=== PATIENT | female | born 1985 | race Caucasian/White ===

== ENCOUNTER 2017-07-16 05:57 | Inpatient (IN) ==
[2017-07-16] MEDS ORDERED: Lidocaine -MPF 1% 2 ML VIAL ONE (06:29)
[2017-07-16] MEDS ORDERED: Ringers Solution, Lactated 1,000 ML ONE (06:29)
[2017-07-16] MEDS ORDERED: Naloxone 0.4 MG/ML INJ IVP PRN (06:33)
[2017-07-16] MEDS ORDERED: Metoclopramide 10 MG/2 ML VIAL IVP PRN ×2 (06:33→13:58)
[2017-07-16] MEDS ORDERED: Famotidine 20 MG/2 ML VIAL IVP PRN (06:33)
--- NOTE | 2017-07-16 06:41 | Anesthesia Evaluation PreOp ---
Date of Encounter: 07/16/17 Time of Encounter: 06:31 - Past History Planned Operation: repeat Cardiac History: Denies any Significant Hx Pulmonary History: Denies Any Significant HX WARD NURSE History: Denies Any Significant HX Other Medical History: Other (scolosis, previous spinal with issues.) Anesthesia History: No Prior Anesthetic Complications, Past Anesthesia : Yes (term) Alcohol Use: none Medications and Allergies Acetaminophen [Tylenol] 500 mg PO Q6HR PRN #20 tablet 05/19/17 [Rx] Aspirin 05/19/17 [History] Cefdinir [Omnicef] 300 mg PO BID #20 capsule 05/19/17 [Rx] DiphenhydraMINE [Benadryl] 25 mg PO Q6HR PRN #20 capsule 05/19/17 [Rx] Vitamins 05/19/17 [History] Vistaril 05/19/17 [History] 3 Allergy/AdvReac Type Severity Reaction Status Date / Time No Known Allergies Allergy Verified 05/19/17 12:29 Anesthesia Exam - HEENT Pupil (Motor): Pupils equal Mallampati: II Teeth: Normal Oral Opening: Greater than 3 - WARD NURSE LOC: Oriented WARD NURSE Motor: Normal RUE, Normal LUE, Normal RLE, Normal LLE, Normal Face WARD NURSE Sensory: Normal: RUE, LUE, RLE, LLE, Face - Cardiac Rhythm: Regular Murmur: None - Pulmonary Breath Sounds: bilateral Clear Respiratory Effort: Symmetrical Anesthesia Assess/Plan ASA Score: 2 Modified [place]ott Scale for Level of Consciousness: Cooperative, oriented, and tranquil Anesthetic Plan: General, Regional (patient reported she "juan c" with last spinal, did not lose conc.) Monitoring Plan: Standard Monitors Recovery Plan: PACU
[2017-07-16] MEDS ORDERED: Ringers Solution, Lactated 1,000 ML IVC SCH (06:45)
[2017-07-16 07:04] LABS: Basophils % 0.2 %; Eosinophils # 0.1 K/mcL (0.0-0.6); Eosinophils % 0.8 %; Hematocrit 33.5 % (35.3-44.9); Hemoglobin 11.6 g/dL (11.5-15.4); Immature Granulocytes % 0.4 % (0-4); Lymphocytes # 2.4 K/mcL (0.6-4.6); Lymphocytes % 14.6 %; Mean Corpuscular HGB Conc 34.6 g/dL (31.6-35.5); Mean Corpuscular Hemoglobin 30.4 pg (28.0-33.3); Mean Corpuscular Volume 87.7 fL (83.0-100.0); Mean Platelet Volume 10.6 fL (9.4-12.4); Monocytes # 0.7 K/mcL (0.0-1.3); Monocytes % 4.1 %; Neutrophils # 13.4 K/mcL (1.6-8.9); Platelet Count 229 K/mcL (140-400); Red Blood Count 3.82 M/mcL (3.82-4.97); Red Cell Distribution Width 13.9 % (11.5-14.5); Segmented Neutrophils % 79.9 %
[2017-07-16] MEDS ORDERED: *HR* Promethazine 25 MG/ML VIAL IVP PRN (07:24)
[2017-07-16] MEDS ORDERED: *HR* Labetalol 20 MG/4 ML SYRINGE IVP PRN (07:24)
[2017-07-16] MEDS ORDERED: *HR* HYDROmorphone (PF) 1 MG/ML SYRINGE IVP PRN ×2 (07:24→13:58)
--- NOTE | 2017-07-16 07:27 | OB/GYN History & Physical ---
Date of Encounter: 07/16/17 Time of Encounter: 07:23 Assessment and Plan (1) Hx of section Current visit: Yes Status: Acute Patient has a history of previous classical . [facility] recommended repeat C section at 36 weeks LR 125ml/hr CBC UDS Repeat C section by Dr De León. (2) 36 weeks gestation of Current visit: Yes Status: Acute Patient is 36w1d (3) History of delivery, currently in third trimester Current visit: Yes Status: Acute The patient has received progesterone during this (4) History of classical section Current visit: Yes Status: Acute Repeat at 36 weeks per [facility] recommendations (5) History of pre-eclampsia in prior , currently in third trimester Current visit: Yes Status: Acute Patient has been asymptomatic with stable blood pressures (6) Tobacco use affecting in third trimester, antepartum Current visit: Yes Status: Acute Smoking cessation information has been reviewed with the patient during this (7) Family history of dwarfism Current visit: Yes Status: Acute The patient has a current child affected. No markers noted on ultrasound with this History of Present Illness Chief complaint: RPT C/S HPI: Ms. Phipps is a 32 year old female at 36w1d presents to labor and delivery for a repeat . Patient denies loss of fluid, vaginal bleeding or discharge. Reports good movement. Denies any complications with this . States that she saw Dr. Collins and now sees Dr. De León. Patient states that she is here for C Section with Dr. De León. Patient reports that she has had s still and a child that only lived a month before developing an infection and dying. Her GBS was done in the office as a PCR. No results available. She is neto today on the monitor Blood type O negative CMV IgG Antibody 5.20 HPV High Risk Positive Rubella IgG antibody Positive VZV IgG Antibody Positive Past Med Surg Social Fam HX - Past Medical History Medical history: non-contributory Psychiatric history: depression - Past Surgical History Surgical History: other - Social History Smoking Status: Current every day smoker Packs per day: 1/2 Smokeless Tobacco Status: No Alcohol use: none Drug use: none - Family History Maternal Grandfather Hx Family Cardiac Disorders: No Hx Family Respiratory Disorders: Yes (emphysema) Hx Family Cancer: Yes (colon ca, bladder ca, stomach ca) Hx Family GI Disorders: No Hx Family Genitourinary Disorders: No Hx Family Endocrine Disorder: No Hx Family Musculoskeletal Disorders: No Hx Family Neuromuscular Disorders: No Hx Family Neurologic Disorders: No Hx Family HEENT Disorders: No Hx Family Autoimmune Disorders: No Hx Family Reproductive Disorders: No Hx Family Psychosocial Disorders: No Hx Family Medical Disorders: No Obstetrical History - Pregnancies : 4 Term: 0 : 3 Ab's: 0 Livin - History/Complications History/Complications: #1 Still at 24 weeks #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 Hx of preeclampsia and oligohydramnios Medications and Allergies Acetaminophen [Tylenol] 500 mg PO Q6HR PRN #20 tablet 05/19/17 [Rx] Aspirin 81 mg PO DAILY 05/19/17 [History] Vitamins 1 tab PO DAILY 05/19/17 [History] Vistaril 25 mg PO DAILY PRN 05/19/17 [History] 3 Allergy/AdvReac Type Severity Reaction Status Date / Time No Known Allergies Allergy Verified 05/19/17 12:29 Review of System OB All systems PM: reviewed and no additional remarkable complaints except as stated - Constitutional Constitutional ROS IM: weight gain - Gastrointestinal Gastrointestinal: cramping Exam - Constitutional Constitutional: well developed, well nourished, no acute distress, average body habitus - HEENT HEENT: Normocephaly, Mucus Membranes Moist - Neck Neck exam: full ROM, normal inspection, supple - Lungs Respiratory exam: CTAB - Cardiovascular Cardiovascular exam: RRR, +S1, +S2 - Abdomen Abdomen: Present: bowel sounds normal, gravid, non tender - Extremities Extremities exam: full ROM, normal capillary refill, normal inspection Deep Tendon Reflex Grade: 2+ Normal - Vulva Vulva: bilateral: normal - Vagina Vagina: Present: normal moisture - Anus/Rectum Anus/Rectum: Present: normal perianal skin Results Result Diagrams: 07/16/17 06:55 Abnormal lab results WBC 16.7 K/mcL (4.3-11.1) H 07/16/17 06:55 Hct 33.5 % (35.3-44.9) L 07/16/17 06:55 Neutrophils # 13.4 K/mcL (1.6-8.9) H 07/16/17 06:55 All other labs normal. - VTE Documentation of Mechanical Device: Intermittent pneumatic compression device - Attending Attestation I examined this patient and my medical decision-making was reviewed with the Resident Physician. I agree with the documented findings, disposition and treatment plan as described except to the extent set forth below.
[2017-07-16] MEDS ORDERED: cefOXitin 2,000 MG in Water for inj. (sterile) 10 ML IVP ONE (07:56)
--- NOTE | 2017-07-16 08:52 | Anesthesia Procedures ---
Date of Encounter: 07/16/17 Time of Encounter: 08:49 Procedures: Anesthesia - Epidural/Spinal Patient ID/Chart reviewed: Yes Patient examined: Yes OB Eval: Gestational age: 36 OB Eval: : 4 OB Eval: Hx Para: 2 OB Eval: Dilated at (cm): 2 OB Eval: Contractions: Non-stressed pattern Consent Obtained: Yes Supplemental Oxygen: Nasal Cannula Supplemental Oxygen Rate (L/min): 3 Site Prep: Aseptic Technique, Sterile prep and drape, Povidone-Iodine 1% Patient position: upright Local Anesthetic: Lidocaine 1% Amount of Local Anesthetic used: 3 Interspace Used: L2-L3 Loss of Resistance (MANSI): No Blood: No CSF: Yes Paresthesia: No Spinal Needle Gauge: 25 Spinal Dose: marcaine 12mg, duramorph .25, fentanyl 7 mcg Vitals + FHT's: 130/70 90 16 fht 133
[2017-07-16] MEDS ORDERED: *HR* Oxytocin 10 UNIT/ML VIAL IM ONE (09:07)
[2017-07-16] MEDS ORDERED: Ondansetron 4 MG/2 ML VIAL ONE (09:07)
[2017-07-16 09:12] LABS: Amphetamine Screen,Urine Negative ng/mL (Cutoff=1000); Barbiturate Screen,Urine Negative ng/mL (Cutoff=200); Benzodiazepines Screen,Urine Negative ng/mL (Cutoff=200); Cannabinoid Screen,Urine Positive ng/mL (Cutoff = 50); Cocaine Screen,Urine Negative ng/mL (Cutoff= 300); Opiate Screen,Urine Negative ng/mL (Cutoff=300); Phencyclidine Screen,Urine Negative ng/mL (Cutoff=25)
--- NOTE | 2017-07-16 09:40 | OB/GYN Procedure Note ---
Section - Date of procedure: 07/16/17 Preop diagnosis: desires repeat , other (Previous classical section, omental adhesions) Post-op diagnosis: same Procedure: section, repeat low transverse Surgeon: Cori De León Estimated blood loss (cc): 300 Anesthesiologist: Rai Tipton Philosophy Faculty: John Rico Anesthesia Type: Spinal section complications: none Disposition: L&D Recovery Room Specimens: Placenta, Cord blood - Infant (s) A Delivery Date: 07/16/17 Delivery Time: 08:53 Presentation: vertex Position: LOT Route of delivery: other (Repeat section) Gender: Female Viability: Viable Pounds: 4 Ounces: 12 at 1 minute: 9 at 5 minutes: 9 Specimens collected: cord blood Placenta: spontaneous Cord: 3 umbilical vessels - Narrative Narrative: The patient was taken to the operating room and given spinal anesthesia adequate for abdominal and pelvic surgery. She was prepped and draped in the usual sterile fashion. Timeout was completed. A Pfannenstiel skin incision was made through the previous scar. The subcutaneous tissue was sharply dissected down to the fascia. The fascia was incised in the midline and extended bilaterally with Schaefer scissors.. 2 straight Lyons clamps were placed on the inferior fascial edge and the fascia was bluntly and sharply dissected away from the rectus muscles. This was repeated superiorly. The rectus muscles were bluntly bissected. Peritoneum was sharply entered and then extended superiorly and inferiorly confirming there were no obstructing anterior adhesions. Bladder blade was placed to protect the bladder. There were omental adhesions to the right of the incision that were lysed with the Bovie. Vesicouterine peritoneum was incised and reflected inferiorly and the bladder blade was replaced to protect the bladder. A low transverse incision was then made through the lower uterine segment down to the amnion. This was extended in a U fashion with bandage scissors. The amnion was bluntly entered. Clear fluid was seen. This was followed by the vertex delivery of a viable and vigorous female weighing 4 #12 oz with Apgars of 9 at 1 minute and 9 at 5 minutes. Infant was placed on the maternal abdomen. The cord was clamped and cut after a delay. Infant was handed to the nursery care team. Cord blood was obtained. The placenta was delivered spontaneous and intact. The uterine cavity was digitally palpated and wiped clean with a moist lap sponge. There were no placental remnants identified. A ring forcep was used to make sure the cervix was dilated and then this was discarded off the field. Clamps were placed on the uterine angles and the uterine incision was closed using 0 Vicryl suture in a running, locking fashion. A second imbricating layer completed the uterine closure with 0 Vicryl suture. The uterus was then examined and noted to be hemostatic. The pelvis was then irrigated with a copious amount of sterile water. And again good hemostasis was identified. Tubes and ovaries were inspected and noted to be grossly normal. The peritoneal edges and rectus muscles were then examined and hemostasis achieved. The fascia was then closed using 0 PDS loop in a running nonlocking fashion. Subcutaneous tissue was irrigated with sterile water, good hemostasis was achieved. The skin was then closed using a 4-0 Monocryl in a running subcuticular fashion. The incision was then reinforced with benzoin and Steri-Strips. Good hemostasis was noted. Estimated blood loss was 300cc. The [place] was noted to be draining clear yellow urine at the end of the procedure. All sponge and instrument counts are correct at the end of the procedure. The patient was taken to the recovery room in stable condition.
[2017-07-16] MEDS ORDERED: Oxytocin 20 units/ LR 1000 mL 20 UNIT/1,000 ML BAG IVC ONE (11:13)
--- NOTE | 2017-07-16 12:06 | Anesthesia Evaluation Post Op ---
Date of Encounter: 07/16/17 Time of Encounter: 12:05 - Lungs Lungs: Clear Ascult./Percussion - Airway Airway: Non-obstructed - Cardiovascular Regular Rate - Mental Status Mental Status: Alert & Oriented, Answers Appropriately - Pain Pain Scale: 4 (dilaudid given) Pain Scale used: Numeric (1 - 10) - Nausea Vomiting Nausea Vomiting: Not Present - Hydration Hydration: NPO - Discharge PostOp Status: Transfer Patient to floor (VSS, pain managed, no anesthetic complications)
[2017-07-16] MEDS ORDERED: Ondansetron 4 MG/2 ML VIAL IVP PRN (13:58)
[2017-07-16] MEDS ORDERED: Rho Immune Globulin 1,500 UNIT SYRINGE IM ONE (13:58)
[2017-07-16] MEDS ORDERED: Oxytocin 20 units/ LR 1000 mL 20 UNIT/1,000 ML BAG IVC SCH (13:58)
[2017-07-16] MEDS ORDERED: Sennosides 8.6 MG TABLET PO PRN (13:58)
[2017-07-16] MEDS: *HR* OxyCODONE/APAP 5/325 TABLET PO PRN ×2 (18:03→22:23)
[2017-07-16] MEDS: Ibuprofen 600 MG TABLET PO SCH ×2 (19:24→22:23)
[2017-07-17 06:44] LABS: Basophils % 0.3 %; Eosinophils # 0.1 K/mcL (0.0-0.6); Hematocrit 27.8 % (35.3-44.9); Immature Granulocytes % 0.4 % (0-4); Lymphocytes # 2.3 K/mcL (0.6-4.6); Lymphocytes % 18.6 %; Mean Corpuscular HGB Conc 34.5 g/dL (31.6-35.5); Mean Corpuscular Hemoglobin 29.8 pg (28.0-33.3); Mean Corpuscular Volume 86.3 fL (83.0-100.0); Mean Platelet Volume 10.1 fL (9.4-12.4); Monocytes # 0.7 K/mcL (0.0-1.3); Monocytes % 5.5 %; Neutrophils # 9.2 K/mcL (1.6-8.9); Platelet Count 163 K/mcL (140-400); Red Blood Count 3.22 M/mcL (3.82-4.97); Red Cell Distribution Width 13.6 % (11.5-14.5); Segmented Neutrophils % 74.2 %
[2017-07-17 06:45] LABS: Hemoglobin 9.6 g/dL (11.5-15.4)
[2017-07-17] MEDS: Prenatal Vit/FA 1 EACH TABLET PO SCH (08:14)
[2017-07-17] MEDS: Simethicone 80 MG TAB.CHEW PO PRN (08:14)
[2017-07-17] MEDS: *HR* OxyCODONE/APAP 5/325 TABLET PO PRN ×3 (08:14→21:06)
[2017-07-17] MEDS: Ibuprofen 600 MG TABLET PO SCH (08:15)
--- NOTE | 2017-07-17 08:48 | OB/GYN Progress Note ---
Date of Encounter: 07/17/17 Time of Encounter: 08:42 - Assessment and Plan (1) Status post repeat low transverse section Current Visit: Yes Status: Acute Doing well s/p repeat C/S Day 1 Meeting post-op milestones. COntinue routine post-op/ orders Anticipate discharge home tomorrow. Subjective - Subjective Principal diagnosis: Repeat Interval history: S/P repeat C/S day 1. Pain is well controlled with ordered medication. VSS Tolerating regular diet Voiding without difficulty; has yet to pass flatus. States she will walk in the halls this morning after breakfast Some difficulty with latch for ; working with Anticipate discharge home tomorrow. Patient reports: appetite normal, voiding normally, pain well controlled, ambulating normally Aragon: doing well Objective - Vital Signs Latest vital signs: Vital Signs Temp Pulse Pulse Resp BP Pulse Ox 07/17/17 07:30 97.5 F L 87 14 107/70 100 07/16/17 23:26 97.8 F 96 16 112/76 100 07/16/17 21:10 98.2 F 90 20 110/71 100 07/16/17 21:00 90 07/16/17 19:55 97.8 F 90 16 109/72 99 07/16/17 14:45 97.7 F 83 16 109/70 07/16/17 13:45 97.9 F 89 16 100/65 07/16/17 12:15 98.1 F 105 16 110/70 100 07/16/17 11:45 98.3 F 87 16 118/77 100 Intake and Output 07/16/17 07/17/17 07/17/17 23:59 07:59 15:59 Intake Total 820 / 820 0 / 0 Output Total 150 / 150 1800 / 1800 Balance 670 / 670 -1800 / -1800 Intake: Oral 820 / 820 0 / 0 Output: Urine 400 / 400 Catheter 150 / 150 1400 / 1400 Other: Meal Dinner Percent of Meal Consumed 95% - Exam Lungs: bilateral: normal Chest: Normal S1, Normal S2 Extremities: Present: normal Abdomen: Present: normal appearance, soft. Absent: gravid, tenderness Incision: Present: dry (Dressing C/D/I) Uterus: Present: normal, firm Fundal Height: 0 (at Umbilicus) - Labs Labs: Laboratory Results - last 24 hr 07/16/17 07/16/17 07/17/17 06:57 09:50 06:34 WBC 12.4 H RBC 3.22 L Hgb 9.6 L D Hct 27.8 L MCV 86.3 MCH 29.8 MCHC 34.5 RDW 13.6 Plt Count 163 MPV 10.1 Immature Gran % 0.4 Seg Neutrophils % 74.2 Lymphocytes % 18.6 Monocytes % 5.5 Eosinophils % 1.0 Basophils % 0.3 Neutrophils # 9.2 H Lymphocytes # 2.3 Monocytes # 0.7 Eosinophils # 0.1 Basophils # 0.0 Urine Opiates Screen Negative Ur Barbiturates Screen Negative Ur Phencyclidine Scrn Negative Ur Amphetamines Screen Negative U Benzodiazepines Scrn Negative Urine Cocaine Screen Negative U Marijuana (THC) Screen Positive H Screen NEGATIVE Baby's Blood Type A RH POSITIVE Mother's Blood Type O RH NEGATIVE Rhogam Indicated YES Rhogam Req for Mother 1
[2017-07-18] MEDS: Ibuprofen 600 MG TABLET PO SCH (06:24)
[2017-07-18] MEDS: *HR* OxyCODONE/APAP 5/325 TABLET PO PRN (08:03)
[2017-07-18] MEDS: Simethicone 80 MG TAB.CHEW PO PRN (08:03)
[2017-07-18] MEDS: Prenatal Vit/FA 1 EACH TABLET PO SCH (08:03)
--- NOTE | 2017-07-18 08:20 | Discharge Summary ---
Addendum entered and electronically signed by Roger Rowley DO 07/18/17 10: 01: Pre-term delivery at 36w1d Original Note: Date of Encounter: 07/18/17 Time of Encounter: 08:18 - Discharge Diagnosis (1) Status post repeat low transverse section Priority: Primary Status: Acute Comments: Pt is s/p repeat POD#2 and meeting all post-op milestones - tolerating po intake, ambulating well, passing flatus. Pain controlled with medications. OARRS reviewed and appropriate. She states she is doing well and feels ready to go home. She can be discharged home today. (2) 36 weeks gestation of Priority: Secondary Status: Acute - Discharge Medications Prescriptions: OxyCODONE/APAP 5/325 [Percocet 5/325 MG] 1 each PO Q4HR PRN #20 tablet PRN Reason: Moderate pain 4-6 Ibuprofen [Motrin] 600 mg PO Q6HR #60 tablet Breast Pump [BREAST PUMP] 1 each .ROUTE AD #1 each Docusate [Colace] 100 mg PO BID #60 capsule Ferrous Sulfate 325 mg PO DAILY #30 tablet.dr Home Medications: Acetaminophen [Tylenol] 500 mg PO Q6HR PRN #20 tablet 05/19/17 [Rx] Aspirin 81 mg PO DAILY 05/19/17 [History] Vitamins 1 tab PO DAILY 05/19/17 [History] Vistaril 25 mg PO DAILY PRN 05/19/17 [History] Breast Pump [BREAST PUMP] 1 each .ROUTE AD #1 each 07/18/17 [Rx] Docusate [Colace] 100 mg PO BID #60 capsule 07/18/17 [Rx] Ferrous Sulfate 325 mg PO DAILY #30 tablet. 07/18/17 [Rx] Ibuprofen [Motrin] 600 mg PO Q6HR #60 tablet 07/18/17 [Rx] OxyCODONE/APAP 5/325 [Percocet 5/325 MG] 1 each PO Q4HR PRN #20 tablet 07/18/17 [Rx] Allergies/Adverse Reactions: 3 Allergy/AdvReac Type Severity Reaction Status Date / Time No Known Allergies Allergy Verified 05/19/17 12:29 Data Procedures and tests throughout hospitalization: Laboratory Tests 07/16/17 07/16/17 07/16/17 06:55 06:57 09:50 WBC 16.7 H RBC 3.82 Hgb 11.6 Hct 33.5 L MCV 87.7 MCH 30.4 MCHC 34.6 RDW 13.9 Plt Count 229 MPV 10.6 Immature Gran % 0.4 Seg Neutrophils % 79.9 Lymphocytes % 14.6 Monocytes % 4.1 Eosinophils % 0.8 Basophils % 0.2 Neutrophils # 13.4 H Lymphocytes # 2.4 Monocytes # 0.7 Eosinophils # 0.1 Basophils # 0.0 Urine Opiates Screen Negative Ur Barbiturates Screen Negative Ur Phencyclidine Scrn Negative Ur Amphetamines Screen Negative U Benzodiazepines Scrn Negative Urine Cocaine Screen Negative U Marijuana (THC) Screen Positive H Screen NEGATIVE Baby's Blood Type A RH POSITIVE Mother's Blood Type O RH NEGATIVE Rhogam Indicated YES Rhogam Req for Mother 1 07/17/17 06:34 WBC 12.4 H RBC 3.22 L Hgb 9.6 L D Hct 27.8 L MCV 86.3 MCH 29.8 MCHC 34.5 RDW 13.6 Plt Count 163 MPV 10.1 Immature Gran % 0.4 Seg Neutrophils % 74.2 Lymphocytes % 18.6 Monocytes % 5.5 Eosinophils % 1.0 Basophils % 0.3 Neutrophils # 9.2 H Lymphocytes # 2.3 Monocytes # 0.7 Eosinophils # 0.1 Basophils # 0.0 Urine Opiates Screen Ur Barbiturates Screen Ur Phencyclidine Scrn Ur Amphetamines Screen U Benzodiazepines Scrn Urine Cocaine Screen U Marijuana (THC) Screen Screen Baby's Blood Type Mother's Blood Type Rhogam Indicated Rhogam Req for Mother Date of admission: 07/16/17 05:57 Primary care physician: PCP NONE Discharging clinician: Roger Rowley Anticipated date of discharge: 07/18/17 - Patient Status Disposition: Home, Self-Care Condition: Good Functional capacity at discharge: independent ambulation Overall status at discharge: patient is progressing back to baseline - Discharge Instructions Follow Up With: NONE,PCP [Primary Care Provider] - Cori De León MD [Partnered Physician] - Additional Instructions: Take your medications as prescribed Feed your baby every 2-3 hours Follow-up with OB for incision check in 1-2 weeks Follow-up with OB in 6 weeks - Diet and Activity Activity: increase activity as tolerated Diet: advance to your usual diet Hospital Course Reason for admission: section Delivery: section Episiotomy: none Laceration: none Other procedures: none complications: none Discharge diagnosis: IUP at term delivered [place] baby: female Hospital course: - Date of procedure: 07/16/17 Preop diagnosis: desires repeat , other (Previous classical section, omental adhesions) Post-op diagnosis: same Procedure: section, repeat low transverse Surgeon: Cori De León Estimated blood loss (cc): 300 Anesthesiologist: Rai Tipton Police Commanding Officer: John Rico Anesthesia Type: Spinal section complications: none Disposition: L&D Recovery Room Specimens: Placenta, Cord blood - Infant (s) A Delivery Date: 07/16/17 Delivery Time: 08:53 Presentation: vertex Position: LOT Route of delivery: other (Repeat section) Gender: Female Viability: Viable Pounds: 4 Ounces: 12 at 1 minute: 9 at 5 minutes: 9 Specimens collected: cord blood Placenta: spontaneous Cord: 3 umbilical vessels Pt is s/p repeat on POD#2 and meeting all post-op milestones. She can be discharged home. Time Attestation: Total time spent providing and/or coordinating discharge services: Time Spent: Less than 30 minutes - VTE Documentation of Mechanical Device: Intermittent pneumatic compression device - Attending Attestation I examined this patient and my medical decision-making was reviewed with the Resident Physician. I agree with the documented findings, disposition and treatment plan as described except to the extent set forth below. Exam - Constitutional Vitals: Temp Pulse Resp BP Pulse Ox 98.2 F 95 16 116/78 100 07/17/17 20:40 07/17/17 20:40 07/18/17 07:53 07/17/17 20:40 07/17/17 20:40 General appearance IM: A&O X 3, no acute distress - Respiratory Respiratory exam: Present: CTAB - Cardiovascular Cardiovascular exam IM: Present: RRR, +S1, +S2 - GI/Abdominal Incision: normal (dressing in place - clean, dry, and intact), dry, intact - Uterus Position: 1 Finger Above Umbilicus - Extremities Exam Extremities exam IM: Present: normal capillary refill, normal inspection, pedal edema (mild bilaterally). Absent: tenderness - Neurological Exam Neurological exam: alert, no focal deficits - Psychiatric Additional comments: Reports mood is "good"
[2017-07-18 08:45] VITALS: BP 128/82
== END 2017-07-18 11:10 | disposition home or self-care (01) | DRG 540 ==
LOC: 1NENULAB 05:57 → 1NENUOBS 11:54
PROVIDERS: ADMIT Obstetrics & Gynecology; ATTEND Obstetrics & Gynecology

== ENCOUNTER 2020-04-25 12:59 | Inpatient (IN) ==
[2020-04-25] MEDS ORDERED: Acetaminophen 325 MG TABLET PO ONE (13:31)
[2020-04-25 13:47] LABS: Bacteria,Urine Few per hpf (None-Few); Bilirubin,Urine Negative (Negative); Blood,Urine Small (Negative); Budding Yeast,Urine Few per hpf (None Seen); Clarity,Urine Turbid (Clear); Color,Urine Yellow (Yellow); Glucose,Urine (UA) Normal (Normal); Hyaline Casts,Urine Few per lpf (None Seen); Ketones,Urine Negative (Negative); Leukocyte Esterase,Urine Large (Negative); Mucus,Urine Few per lpf (None-Few); Nitrite,Urine Negative (Negative); PH,Urine 6.5 pH Units (5.0-8.0); Protein,Urine 100 mg/dL (Neg-Trace); Squamous Epithelial Cell,Urine Few per hpf (None-Few); Transitional Epi Cells,Urine Few per hpf (None-Few); Urobilinogen,Urine Normal (Normal); WBC,Urine TNTC per hpf (0-3)
[2020-04-25 14:20] LABS: Basophils % 0.2 %; Eosinophils % 0.1 %; Hematocrit 28.4 % (35.3-44.9); Hemoglobin 9.9 g/dL (11.5-15.4); Immature Granulocytes % 0.9 % (0-4); Lymphocytes # 0.9 K/mcL (0.6-4.6); Lymphocytes % 4.8 %; Mean Corpuscular HGB Conc 34.9 g/dL (31.6-35.5); Mean Corpuscular Hemoglobin 31.4 pg (28.0-33.3); Mean Corpuscular Volume 90.2 fL (83.0-100.0); Mean Platelet Volume 10.5 fL (9.4-12.4); Monocytes % 5.4 %; Neutrophils # 16.8 K/mcL (1.6-8.9); Platelet Count 207 K/mcL (140-400); Red Blood Count 3.15 M/mcL (3.82-4.97); Red Cell Distribution Width 13.6 % (11.5-14.5); Segmented Neutrophils % 88.6 %; White Blood Count 18.9 K/mcL (4.3-11.1)
[2020-04-25] MEDS ORDERED: cefTRIAXone 1,000 MG in Water for inj. (sterile) 10 ML IVP ONE ×2 (14:38→17:07)
[2020-04-25] MEDS ORDERED: 0.9 % Sodium Chloride 1,000 ML IVC ONE ×2 (14:54→17:10)
[2020-04-25 14:57] LABS: Calcium 8.3 mg/dL (8.6-10.3); Potassium 3.2 mEq/L (3.5-5.1)
[2020-04-25] MEDS ORDERED: Ondansetron 4 MG/2 ML VIAL IVP PRN (17:08)
[2020-04-25] MEDS ORDERED: Naloxone 0.4 MG/ML INJ IVP PRN (17:08)
[2020-04-25 18:12] LABS: Hematocrit 26.8 % (35.3-44.9)
[2020-04-25 18:39] LABS: % Iron Saturation 8 % (15-50); Iron 18 mcg/dL (50-170); Transferrin 157 mg/dL (203-362)
[2020-04-25 18:41] LABS: Adenovirus Not Detected (Not Detect); Bordetella Pertussis Not Detected (Not Detect); Chlamydophila pneumoniae Not Detected (Not Detect); Coronavirus 229E Not Detected (Not Detect); Coronavirus HKU1 Not Detected (Not Detect); Coronavirus NL63 Not Detected (Not Detect); Coronavirus OC43 Not Detected (Not Detect); Human Metapneumovirus Not Detected (Not Detect); Human Rhinovirus/Enterovirus Not Detected (Not Detect); Influenza A Subtype 2009 H1 Not Detected (Not Detect); Influenza B Not Detected (Not Detect); Mycoplasma pneumoniae Not Detected (Not Detect); Parainfluenza Virus 1 Not Detected (Not Detect); Parainfluenza Virus 2 Not Detected (Not Detect); Parainfluenza Virus 3 Not Detected (Not Detect); Parainfluenza Virus 4 Not Detected (Not Detect); Respiratory Syncytial Virus Not Detected (Not Detect); SARS-CoV-2 Not Detected (Not Detect)
[2020-04-25] MEDS: Pantoprazole 40 MG VIAL IVP SCH (19:03)
[2020-04-25] MEDS: 0.9 % Sodium Chloride 1,000 ML IVC SCH (20:18)
[2020-04-25] MEDS ORDERED: Acetaminophen 325 MG TABLET PO PRN (23:32)
[2020-04-26] MEDS ORDERED: Acetaminophen IV 1,000 MG/100 ML INFUS..BTL IVPB ONE (01:01)
[2020-04-26 01:36] LABS: Basophils % 0.1 %; Hematocrit 23.5 % (35.3-44.9); Hemoglobin 7.9 g/dL (11.5-15.4); Immature Granulocytes % 0.5 % (0-4); Lymphocytes # 0.8 K/mcL (0.6-4.6); Lymphocytes % 5.6 %; Mean Corpuscular HGB Conc 33.6 g/dL (31.6-35.5); Mean Corpuscular Hemoglobin 30.4 pg (28.0-33.3); Mean Corpuscular Volume 90.4 fL (83.0-100.0); Monocytes # 0.8 K/mcL (0.0-1.3); Monocytes % 6.1 %; Platelet Count 166 K/mcL (140-400); Red Cell Distribution Width 13.6 % (11.5-14.5); Segmented Neutrophils % 87.7 %; White Blood Count 13.7 K/mcL (4.3-11.1)
[2020-04-26 01:54] LABS: Calcium 7.1 mg/dL (8.6-10.3); Magnesium 1.4 mg/dL (1.6-2.6); Potassium 3.2 mEq/L (3.5-5.1)
[2020-04-26] MEDS: 0.9 % Sodium Chloride 1,000 ML IVC SCH ×3 (06:43→15:06)
[2020-04-26] MEDS ORDERED: Calcium Gluconate 1gm/50mL 1 GM/50 ML BAG IVPB ONE (07:36)
[2020-04-26] MEDS ORDERED: Acetaminophen 325 MG TABLET PO PRN (08:15)
[2020-04-26] MEDS ORDERED: Water for inj. (sterile) 20 ML ONE (09:28)
[2020-04-26] MEDS: Prenatal Vit/FA 1 EACH TABLET PO SCH (09:44)
[2020-04-26] MEDS: Aspirin Enteric Coated 81 MG Tablet PO SCH (09:44)
[2020-04-26] MEDS: cefTRIAXone 2,000 MG in Water for inj. (sterile) 20 ML IVP SCH (09:44)
[2020-04-26] MEDS: Pantoprazole 40 MG VIAL IVP SCH (09:46)
[2020-04-26 11:36] LABS: Hematocrit 24.8 % (35.3-44.9); Hemoglobin 8.5 g/dL (11.5-15.4)
[2020-04-26] MEDS: Iron Sucrose Complex 200 MG in 0.9 % Sodium Chloride 100 ML IVPB SCH (11:55)
[2020-04-27 02:34] LABS: Basophils % 0.2 %; Eosinophils % 0.1 %; Hematocrit 23.6 % (35.3-44.9); Hemoglobin 8.1 g/dL (11.5-15.4); Immature Granulocytes % 0.5 % (0-4); Lymphocytes # 1.2 K/mcL (0.6-4.6); Lymphocytes % 8.3 %; Mean Corpuscular HGB Conc 34.3 g/dL (31.6-35.5); Mean Corpuscular Hemoglobin 31.4 pg (28.0-33.3); Mean Corpuscular Volume 91.5 fL (83.0-100.0); Mean Platelet Volume 11.2 fL (9.4-12.4); Monocytes # 0.5 K/mcL (0.0-1.3); Monocytes % 3.2 %; Neutrophils # 12.2 K/mcL (1.6-8.9); Platelet Count 208 K/mcL (140-400); Red Blood Count 2.58 M/mcL (3.82-4.97); Red Cell Distribution Width 14.5 % (11.5-14.5); Segmented Neutrophils % 87.7 %
[2020-04-27 02:54] LABS: BUN/Creatinine Ratio 15 (6-26); Blood Urea Nitrogen 13 mg/dL (6-20); Calcium 7.7 mg/dL (8.6-10.3); Carbon Dioxide 17 mEq/L (23-29); Chloride 107 mEq/L (98-107); Glucose 88 mg/dL (70-105); Osmolality,Calculated 278 (280-300); Potassium 3.8 mEq/L (3.5-5.1); Sodium 134 mEq/L (136-145); eGFR For African Americans > 60 (> 60); eGFR For Non-African Americans > 60 (> 60)
[2020-04-27 05:11] LABS: Magnesium 2.2 mg/dL (1.6-2.6)
[2020-04-27] MEDS: Prenatal Vit/FA 1 EACH TABLET PO SCH (08:11)
[2020-04-27] MEDS: Aspirin Enteric Coated 81 MG Tablet PO SCH (08:11)
[2020-04-27] MEDS: cefTRIAXone 2,000 MG in Water for inj. (sterile) 20 ML IVP SCH (12:00)
[2020-04-27] MEDS: Iron Sucrose Complex 200 MG in 0.9 % Sodium Chloride 100 ML IVPB SCH (12:08)
[2020-04-28 03:07] LABS: Basophils % 0.2 %; Eosinophils # 0.1 K/mcL (0.0-0.6); Eosinophils % 0.7 %; Hematocrit 24.1 % (35.3-44.9); Hemoglobin 8.1 g/dL (11.5-15.4); Immature Granulocytes % 0.7 % (0-4); Lymphocytes # 1.5 K/mcL (0.6-4.6); Lymphocytes % 15.3 %; Mean Corpuscular HGB Conc 33.6 g/dL (31.6-35.5); Mean Corpuscular Hemoglobin 30.8 pg (28.0-33.3); Mean Corpuscular Volume 91.6 fL (83.0-100.0); Mean Platelet Volume 10.6 fL (9.4-12.4); Monocytes # 0.5 K/mcL (0.0-1.3); Monocytes % 4.8 %; Neutrophils # 7.7 K/mcL (1.6-8.9); Platelet Count 238 K/mcL (140-400); Red Blood Count 2.63 M/mcL (3.82-4.97); Red Cell Distribution Width 14.5 % (11.5-14.5); Segmented Neutrophils % 78.3 %; White Blood Count 9.9 K/mcL (4.3-11.1)
[2020-04-28 03:29] LABS: BUN/Creatinine Ratio 12 (6-26); Blood Urea Nitrogen 9 mg/dL (6-20); Calcium 7.6 mg/dL (8.6-10.3); Carbon Dioxide 20 mEq/L (23-29); Chloride 108 mEq/L (98-107); Glucose 85 mg/dL (70-105); Magnesium 1.7 mg/dL (1.6-2.6); Osmolality,Calculated 280 (280-300); Potassium 3.2 mEq/L (3.5-5.1); Sodium 136 mEq/L (136-145); eGFR For African Americans > 60 (> 60); eGFR For Non-African Americans > 60 (> 60)
[2020-04-28 06:40] VITALS: BP 153/90
[2020-04-28] MEDS: cefTRIAXone 2,000 MG in Water for inj. (sterile) 20 ML IVP SCH (08:01)
[2020-04-28] MEDS: Aspirin Enteric Coated 81 MG Tablet PO SCH (08:01)
[2020-04-28] MEDS: Prenatal Vit/FA 1 EACH TABLET PO SCH (08:01)
[2020-04-28] MEDS: Iron Sucrose Complex 200 MG in 0.9 % Sodium Chloride 100 ML IVPB SCH (08:02)
[2020-04-28] MEDS ORDERED: Potassium Chloride Elixir 20 MEQ/15 ML UDC PO ONE (09:30)
== END 2020-04-28 10:27 | disposition home or self-care (01) | DRG 566 ==
LOC: EMEROOARM 12:59 → 3ANU 12:59 → 2NNU 12:59 → SUATTDRO 19:15 → 2NNU 20:31 → 2ANU 04-26 21:29 → SUATTDRO 04-27 15:36
PROVIDERS: ADMIT Pharmacist; ATTEND Internal Medicine

== ENCOUNTER 2020-08-27 11:21 | Inpatient (IN) ==
[2020-08-27] MEDS ORDERED: Metoclopramide 10 MG/2 ML VIAL IVP PRN ×2 (11:53→18:42)
[2020-08-27] MEDS ORDERED: Azithromycin 500 MG in 0.9 % Sodium Chloride 250 ML IVPB ONE (11:53)
[2020-08-27] MEDS ORDERED: Ondansetron 4 MG/2 ML VIAL IVP PRN ×3 (11:53→18:42)
[2020-08-27] MEDS ORDERED: Famotidine 20 MG/2 ML VIAL IVP PRN (11:53)
[2020-08-27] MEDS ORDERED: Naloxone 0.4 MG/ML INJ IVP PRN ×2 (11:53→15:23)
[2020-08-27] MEDS ORDERED: Ringers Solution, Lactated 1,000 ML IVC SCH ×2 (12:00→18:42)
[2020-08-27 12:58] LABS: Amphetamine Screen,Urine Negative ng/mL (Cutoff=1000); Barbiturate Screen,Urine Negative ng/mL (Cutoff=200); Benzodiazepines Screen,Urine Negative ng/mL (Cutoff=200); Cannabinoid Screen,Urine Positive ng/mL (Cutoff = 50); Cocaine Screen,Urine Negative ng/mL (Cutoff= 300); Opiate Screen,Urine Negative ng/mL (Cutoff=300); Phencyclidine Screen,Urine Negative ng/mL (Cutoff=25)
[2020-08-27 12:59] LABS: Basophils # 0.1 K/mcL (0.0-0.2); Basophils % 0.4 %; Eosinophils # 0.2 K/mcL (0.0-0.6); Eosinophils % 1.1 %; Hematocrit 34.9 % (35.3-44.9); Hemoglobin 11.5 g/dL (11.5-15.4); Lymphocytes # 2.2 K/mcL (0.6-4.6); Lymphocytes % 16.3 %; Mean Corpuscular Volume 94.1 fL (83.0-100.0); Mean Platelet Volume 10.6 fL (9.4-12.4); Monocytes # 0.6 K/mcL (0.0-1.3); Monocytes % 4.3 %; Neutrophils # 10.4 K/mcL (1.6-8.9); Platelet Count 207 K/mcL (140-400); Red Blood Count 3.71 M/mcL (3.82-4.97); Red Cell Distribution Width 13.7 % (11.5-14.5); Segmented Neutrophils % 76.9 %; White Blood Count 13.5 K/mcL (4.3-11.1)
[2020-08-27] MEDS ORDERED: Oxytocin 20 units/ LR 1000 mL 40 UNIT/2,000 ML BAG IVC ONE (13:55)
[2020-08-27] MEDS ORDERED: *HR* Phenylephrine 10 MG/ML VIAL ONE (14:18)
[2020-08-27] MEDS ORDERED: *HR* FentaNYL (PF) 100 MCG/2 ML VIAL ONE (14:18)
[2020-08-27] MEDS ORDERED: *HR* Morphine Sulfate/PF 10 MG/10 ML AMPUL ONE (14:18)
[2020-08-27 14:22] LABS: Adenovirus Not Detected (Not Detect); Bordetella Pertussis Not Detected (Not Detect); Chlamydophila pneumoniae Not Detected (Not Detect); Coronavirus 229E Not Detected (Not Detect); Coronavirus HKU1 Not Detected (Not Detect); Coronavirus NL63 Not Detected (Not Detect); Coronavirus OC43 Not Detected (Not Detect); Human Metapneumovirus Not Detected (Not Detect); Human Rhinovirus/Enterovirus Not Detected (Not Detect); Influenza A Subtype 2009 H1 Not Detected (Not Detect); Influenza B Not Detected (Not Detect); Mycoplasma pneumoniae Not Detected (Not Detect); Parainfluenza Virus 1 Not Detected (Not Detect); Parainfluenza Virus 2 Not Detected (Not Detect); Parainfluenza Virus 3 Not Detected (Not Detect); Parainfluenza Virus 4 Not Detected (Not Detect); Respiratory Syncytial Virus Not Detected (Not Detect); SARS-CoV-2 Not Detected (Not Detect)
[2020-08-27] MEDS ORDERED: Promethazine 6.25 MG in Water for inj. (sterile) 20 ML IVPB PRN (15:23)
[2020-08-27] MEDS ORDERED: *HR* OxyCODONE Immed Rel 5 MG TABLET PO PRN (15:23)
[2020-08-27] MEDS ORDERED: *HR* Meperidine 25 MG/ML SYRINGE IVP PRN (15:23)
[2020-08-27] MEDS ORDERED: *HR* FentaNYL (PF) 100 MCG/2 ML VIAL IVP PRN (15:23)
[2020-08-27] MEDS ORDERED: Acetaminophen IV 1,000 MG/100 ML BAG IVPB ONE (15:25)
[2020-08-27] MEDS ORDERED: Simethicone 80 MG TAB.CHEW PO PRN (18:42)
[2020-08-27] MEDS ORDERED: Rho Immune Globulin 1,500 UNIT SYRINGE IM ONE (18:42)
[2020-08-27] MEDS ORDERED: Oxytocin 20 units/ LR 1000 mL 20 UNIT/1,000 ML BAG IVC SCH ×2 (18:42)
[2020-08-27] MEDS ORDERED: Sennosides 8.6 MG TABLET PO PRN (18:42)
[2020-08-28] MEDS: *HR* OxyCODONE/APAP 5/325 TABLET PO PRN ×3 (04:48→21:22)
[2020-08-28 05:17] LABS: Basophils % 0.3 %; Eosinophils # 0.2 K/mcL (0.0-0.6); Eosinophils % 1.1 %; Hematocrit 31.3 % (35.3-44.9); Hemoglobin 10.4 g/dL (11.5-15.4); Immature Granulocytes % 0.5 % (0-4); Lymphocytes # 1.9 K/mcL (0.6-4.6); Lymphocytes % 12.7 %; Mean Corpuscular HGB Conc 33.2 g/dL (31.6-35.5); Mean Corpuscular Volume 93.4 fL (83.0-100.0); Mean Platelet Volume 10.4 fL (9.4-12.4); Monocytes # 0.5 K/mcL (0.0-1.3); Monocytes % 3.4 %; Neutrophils # 12.2 K/mcL (1.6-8.9); Nucleated Red Blood Cells 0.1 /100 WBC (0); Platelet Count 189 K/mcL (140-400); Red Blood Count 3.35 M/mcL (3.82-4.97); Red Cell Distribution Width 13.6 % (11.5-14.5); White Blood Count 14.8 K/mcL (4.3-11.1)
[2020-08-28] MEDS: Prenatal Vit/FA 1 EACH TABLET PO SCH (09:13)
[2020-08-28] MEDS: *HR* Enoxaparin 30 MG/0.3 ML SYRINGE SQ SCH (09:13)
[2020-08-28] MEDS: Ibuprofen 600 MG TABLET PO PRN (09:20)
[2020-08-28] MEDS ORDERED: Lanolin 7 G OINT...G. TP PRN (17:23)
[2020-08-29] MEDS: Ibuprofen 600 MG TABLET PO PRN ×2 (00:24→08:47)
[2020-08-29] MEDS: *HR* Enoxaparin 30 MG/0.3 ML SYRINGE SQ SCH (05:46)
[2020-08-29 08:30] VITALS: BP 135/88
[2020-08-29] MEDS: Prenatal Vit/FA 1 EACH TABLET PO SCH (08:46)
== END 2020-08-29 12:15 | disposition home or self-care (01) | DRG 539 ==
LOC: SAMDAY 11:21 → 1NENULAB 11:26 → 1NENUOBS 18:36
PROVIDERS: ADMIT Obstetrics & Gynecology; ATTEND Obstetrics & Gynecology